=== PATIENT | male | born 1970 | race Hispanic/Latino ===

== ENCOUNTER 2020-04-28 10:26 | Emergency (ER) | payer OTHER, SELFPAY ==
[2020-04-28 10:27] VITALS: BP 133/80; PULSE 64; RESP 16; TEMP 36.9; O2SAT 97; BMI 21.0
--- NOTE | 2020-04-28 10:39 | ED.DCSUM_ITS ---
- ER Visit Summary Date of Service: 04/28/20 Chief Complaint: Left index finger laceration History of Present Illness: The patient is a 50 M who presents with a laceration to his left index finger that occurred today while at work. Patient states he was knife when he accidentally cut his left index finger. Patient is right-hand dominant. Patient denies any paresthesias. Patient states she has difficulty extending the DIP joint of his left index finger. Patient is unsure of his last tetanus. Patient states the bleeding stopped after several minutes of pressure. Dressing was applied. Physical Examination: Vital signs were stable. Patient is afebrile. Patient is in no acute distress. Skin is warm and dry. There is a 2 cm full-thickness linear laceration of the dorsal aspect of the left index finger over the DIP joint area. There is moderate gapping of the wound margins. There is moderate bleeding. There are no foreign bodies visualized. Sensation was intact light touch in all digits. Capillary refill was less than 2 seconds in all digits. Strength is 0/5 in extension of the DIP joint but is 5/5 in extension of the PIP and MP joints as well as flexion of the DIP, PIP, and MP joints. Emergency Department Course and Treatment: The wound was cleaned and irrigated with copious amounts of normal saline. The wound was anesthetized with 1% plain lidocaine via digital block. The wound was closed with 6 simple interrupted #4- 0 nylon sutures under sterile technique. Patient tolerated the procedure well. Bacitracin dressing was applied. The finger was placed in an extension splint. Video owner professional engineer was used to discuss instructions. Patient was instructed to maintain extension of the DIP joint when he changes the dressing. Patient was instructed to keep the wound clean and dry. Patient was instructed to [facility] with [facility] Patient was also given referral to Dr. Hong for follow- up care. Patient understood and was agreeable with the plan. All questions were answered. Disposition: Discharge home Impression: 1. Left index finger laceration 2. Extensor tendon laceration This note was generated with [employer] dictation software. It may contain incorrect words, spelling, and punctuation that were not noted in review of the chart prior to signing ED Disposition - Plan for ED Patient: Disposition: Home or Assisted Living Diagnosis: Laceration of left index finger, Extensor tendon laceration of finger with open wound Instructions: ED Laceration Hand, ED TENDON LACERATION [facility] - 7 Days for suture removal Gareth Hong MD [STAFF PHYSICIAN] - 5-7 Days Print Language: New Zealander
[2020-04-28 10:42] VITALS: RESP 16
--- NOTE | 2020-04-28 10:51 | NURSING ---
DR RU DEUTSCH
[2020-04-28] MEDS: BACITRACIN 15 GM Tube 1 APPLIC TOPICAL (11:30)
--- NOTE | 2020-04-28 11:40 | NURSING ---
spoke at length with patient using the head of stock pad and a procurement officer. This RN went over care and home/follow up instructions as well as the benefits of receiving a tetanus immunization. Pt refused the immunization. Clinical Lab Clerk also used to explain that patient need to go directly to the [facility] for testing. Dr. Mcdaniel spoke thru head of stock regarding need for keeping finger straight and using splint at all times and follow up given. D/c instructions provided in Faroese.
== END 2020-04-28 11:47 | disposition home or self-care (01) ==
PROVIDERS: Emergency Provider Emergency Medicine
DX: S61.211A Laceration without foreign body of left index finger without damage to nail, initial encounter (principal); S66.321A Laceration of extensor muscle, fascia and tendon of left index finger at wrist and hand level, initial encounter; W26.0XXA Contact with knife, initial encounter; Y93.9 Activity, unspecified; Y92.9 Unspecified place or not applicable; Y99.0 Civilian activity done for income or pay
CPT/HCPCS: 12001; 99284

== ENCOUNTER 2020-05-04 07:07 | Day surgery (SDC) | payer OTHER, SELFPAY ==
[2020-04-30 10:36] VITALS: BMI 21.0
--- NOTE | 2020-05-03 17:54 | PCM.HP.BLA ---
History and Physical Date of Admission: 05/04/20 HISTORY OF PRESENT ILLNESS 50 year old male presents for evaluation of his left index finger that was injured with a knife on 04/28/20 while he was at work. He was seen in the ED for evaluation and sutured his laceration on the dorsal aspect of his left index finger just proximal to the DIP joint crease. He has difficulty extending the distal phalanx of that finger. He comes in today for further evaluation. Patient speaks Arabic. A video cant gang sawyer was obtained, and his name was Michael Sheets (#[id number]). He was present for the entire visit. ALLERGIES No Known Allergies MEDICATIONS No Known/Unobtainable [No Known Home Medications] PAST MEDICAL HISTORY Work related injury Injury due to knife Laceration of left index finger with tendon involvement Laceration of extensor muscle, fascia and tendon of left index finger at wrist and hand level, initial encounter PAST SURGICAL HISTORY None. FAMILY HISTORY Other - No pertinent family history SOCIAL HISTORY Smoking Status: Never smoker alcohol intake: never substance use type: does not use REVIEW OF SYSTEMS General - Denies fever, fatigue, and weight loss. Eyes - Denies cataracts and glaucoma. ENT - Denies nasal congestion and sore throat. Endocrine - Denies excessive thirst and urination. Skin - Denies suspicious lesions and skin cancer. Musculoskeletal - Denies joint pain, joint stiffness, weakness of muscles and joints, back pain, and arthritis. Has pain and decreased range of motion at the DIP joint left index finger from recent knife laceration. Neuro - Denies headaches. Cardiovascular - Denies chest pain, fatigue, and shortness of breath with exertion. Psych - Denies anxiety and depression. Respiratory - Denies chronic cough and shortness of breath. Gastrointestinal - Denies nausea, vomiting, diarrhea, and constipation. Hematologic - Denies abnormal bruising and bleeding. Genitourinary - Denies hematuria and urinary frequency. PHYSICAL EXAMINATION General - Alert and oriented. HEENT - PERRL. EOMI. Throat is clear. Neck - Supple and non-tender. No cervical adenopathy. Lungs- Clear to auscultation. Heart - Regular rate and rhythm. Abdomen - Soft and non distended. Extremities - FROM right upper extremity. No axillary adenopathy. Radial pulses are palpable. Patient is right hand dominant. On the left index finger is a 2 cm laceration that has been suture repaired on dorsal aspect, just proximal to DIP joint on the edge of Zone 1 and Zone 2. He is able to distinguish sharp sensation without difficulty. He has decreased extensor strength in his left index finger and is unable to fully extend his distal phalanx. Neuro - CN II-XII grossly intact. Psych - Normal mood and affect. ASSESSMENT 1 2 cm horizontal laceration dorsum left index finger just proximal to DIP joint with extensor tendon injury (edge of zone 1 and zone 2). 2. Injury at work with a knife. PLAN Patient has a knife laceration to the dorsum left index finger just proximal to the DIP joint crease (edge of zone 1 and zone 2) with an extensor tendon injury. Recommended to the patient through a video cant gang sawyer that we proceed with surgery with exploration of the laceration and repair of the extensor tendon laceration. Will extend the incision in a proximal and distal direction to get necessary exposure for the tendon repair. Postoperatively he will have a splint. He will go to OT after discharge after healing for range of motion exercises, strengthening, and edema management. He may return to work after surgery when he is not using narcotics for pain and for one handed work ONLY. Estimated time back to work with no restrictions is 07/04/20 (tentative). Will schedule the surgery early next week under general anesthesia on an outpatient basis. Patient was informed of the risks and complications of the procedure including alternatives to surgery. These were discussed with the patient personally. Patient voices understanding and wishes to proceed. Some of the risks and complications were included in a form from the [employer]. Some of the risks and complications that were discussed included but were not inclusive of failure to diagnose including symptom relief, pain, infection, numbness, stiffness, loss of digit, RSD (CRPS), need for further surgery, contracture, and wound healing problems. We discussed the current risks associated with COVID-19. While it is understood that there is a community spread of COVID-19, the risk of haroldo COVID-[address] [facility] ([facility]) is very low; however, the risk cannot be completely mitigated because of the community spread of the disease. We discussed in detail the risk of exposure to and/or potential harm posed by the COVID-19 virus with having a surgery/procedure at this time versus the risk of delaying the surgery/procedure. It is not possible to know either the risk of delaying the surgery or procedure or chance of getting an infection with perfect accuracy, but a joint decision was made to proceed at this time with the scheduled surgery/procedure as indicated on the consent form. Patient was notified that we will need to comply with any screening or testing [facility] wishes to perform or that surgery may be delayed for any positive results. Discussed with the patient that I was tested for COVID-19 on 03/04/20 which was negative and on 03/18/20 which was negative and on 04/01/20 which was negative and on 04/15/20 which was negative. My testing regimen at this time is to be COVID-19 tested every 2 weeks or so. I was recently tested on 04/29/20, and that test was negative. Procedure Criteria Procedure Type: Elective COVID Risk Discussion: The surgeon/proceduralist and patient have discussed in detail the risk of exposure to and/or potential harm posed by the COVID-19 virus with having a surgery/procedure at this time versus the risk of delaying the surgery/procedure. It is not possible to know either the risk of delaying the surgery or procedure or chance of getting an infection with perfect accuracy, but a joint decision was made between the patient and the surgeon/proceduralist to proceed at this time with the scheduled surgery/procedure as indicated on the consent form.
[2020-05-04] VITALS (7 sets, daily range): BP systolic 107–137; BP diastolic 61–82; PULSE 61–72; RESP 16; TEMP 36.5–37.1; O2SAT 98–100; BMI 23.3
[2020-05-04] MEDS: Lactated Ringers 1,000 ML 100 ML IV ×2 (07:58→10:17)
[2020-05-04] MEDS: Cefazolin 2 GM in 0.9% Normal Saline 100 ML IV (08:55)
[2020-05-04] MEDS: Mupirocin Ointment 22gm Tube 1 APPLIC (09:45)
--- NOTE | 2020-05-04 10:01 | PCM.OPRPT ---
Report of Operation Date of Procedure: 05/04/20 Pre-Operative Diagnosis: 1 2 cm horizontal laceration dorsum left index finger just proximal to DIP joint with extensor tendon injury (edge of zone 1 and zone 2). 2. Injury at work with a knife. Post-Operative Diagnosis: Same. Surgery/Procedure Performed:: Repair extensor tendon laceration dorsum left index finger just proximal to DIP joint (edge of zone 1 and zone 2). Description of Surgical Findings:: 50 year old male presents for evaluation of his left index finger that was injured with a knife on 04/28/20 while he was at work. He was seen in the ED for evaluation and sutured his laceration on the dorsal aspect of his left index finger just proximal to the DIP joint crease. He has difficulty extending the distal phalanx of that finger. He comes in today for further evaluation. Patient speaks Macedonian. A video timber trimmer was obtained, and his name was Michael Sheets (#[id number]). He was present for the entire office visit. Patient was informed of the risks and complications of the procedure including alternatives to surgery. These were discussed with the patient personally. Patient voices understanding and wishes to proceed. Some of the risks and complications were included in a form from the [employer]. Some of the risks and complications that were discussed included but were not inclusive of failure to diagnose including symptom relief, pain, infection, numbness, stiffness, loss of digit, RSD (CRPS), need for further surgery, contracture, and wound healing problems. Total tourniquet time - 35 minutes. advisory application developer: None Type of Anesthesia:: General Specimen's removed: None. Drains: None. Estimated Blood Loss (mL): 2 ml. Description of Procedure: Patient was taken to OR in supine position and was placed under general anesthesia. The left hand was prepped and draped in the usual fashion. A tourniquet was placed. SCD's were placed for DVT prophylaxis. Perioperative antibiotics were given intravenously. For the procedure, I wore an N95 mask and wore proper eyewear protection. Using an Esmarch bandage, I elevated the tourniquet to 250 mmHg. Using xylocaine with epinephrine, a digital metacarpal block was administered to help with postop pain relief. I extended the incision on the dorsum left index finger in a proximal and distal direction in a zig zag fashion. Dissection was carried down to the underlying tendon, and the tendon laceration was visualized. The extensor tendon injury was just proximal to the DIP joint. I proceeded with repair of the extensor tendon laceration with 4-0 Nylon figure of eight interrupted sutures. The wound was irrigated with saline. Wound closure was done with 5-0 Nylon vertical mattress interrupted sutures and simple interrupted sutures. At the time of the wound closure, the tourniquet was released after 35 minutes. Hemostasis was obtained with gentle compression. No vascular compromise noted on the skin flaps. Antibiotic ointment was applied to the suture line followed by Xeroform gauze and 2x2 gauze and wrapped with a 2 inch Salima wrap. This was followed by a volar plaster splint with the wrist in dorsiflexion and the MP joints flexed and the IP joints extended and followed with a compression tiffanie wrap. Patient tolerated the procedure well and was sent to PACU in satisfactory condition. Patient will be sent home on antibiotics and pain medication. He will keep his left hand elevated during the initial postoperative period. Patient will followup in a week for a wound check. The sutures will be removed in two weeks. Will set up OT as an outpatient for a silastic splint and after healing, range of motion exercises, strengthening, and edema management. Grafts/Implants Used: None. - Complications None. - Admit VTE Documentation VTE Present on Admission: No VTE Mechan Device Prophylaxis: SCD's VTE Pharm Prophylaxis ordered?: No Surgery Charges CPT - 12739 ICD-10 - S66.321A, S61.211A, W26.0xxA, Y99.0
--- NOTE | 2020-05-04 10:12 | PCM.DC ---
You will use the following diet at home:: No restrictions Discharge Activity: May not drive while taking narcotic pain medications., May Shower - place plastic bag over left hand when showering., - - elevate left hand. no lifting with left hand. Return to work on:: 05/17/20 - tentative. one handed work only. May shower in (days): 1 - wear plastic bag over left hand when showering. May resume sexual activity in: No Restrictions Weight Bearing Status: Weight bearing as tolerated Lifting Restrictions: no lifting left hand. Keep extremity elevated above heart level: Left Arm Call your doctor if your incision/area has: Continuous Slow Oozing, Sudden Increased Bleeding, Increased Pain/ Swelling, Increased Redness, Foul Smelling Discharge, Swelling at the incision site Call your doctor if you observe: Fever of 101 or Higher, Coldness, Increased Pain, Shortness of breath, Chest pain, Calf discomfort, Uncontrolled pain Change Dressing in (Days):: 7 - will change operative dressing in office. Cleanse incision/area with: - - werar plastic bag over left hand when showering. Allergies/Adverse Reactions: Allergies No Known Allergies Allergy (Verified 05/04/20 07:28) Medications to take at Discharge Cefadroxil [Duricef] 500 mg PO BID #10 cap 05/04/20 Oxycodone HCl/Acetaminophen [Percocet 5/325] 1 tablet PO Q4H PRN PRN 7 Days #40 tablet 05/04/20 The following prescriptions were given: Cefadroxil [Duricef] 500 mg PO BID #10 cap Transmission Status: Pending to [facility] Oxycodone HCl/Acetaminophen [Percocet 5/325] 1 tablet PO Q4H PRN PRN 7 Days #40 tablet PRN Reason: Pain Score 6-10/10 Transmission Status: Sent to [facility] Primary Care Physician: Care Physician,No Primary [Primary Care Provider] - Test Results: Test results from this visit will be discussed in further detail at your follow-up appointment, if applicable. Please Follow Up With: Gareth Hong MD When: one week. call [phone] for appt. Please Follow Up With: occupational therapy - after healing proceed with range of motion exercises, strengthening, and edema management. When: one week for a silastic splint Proposed Discharge Date: 05/04/20
== END 2020-05-04 13:06 | disposition home or self-care (01) ==
LOC: SDC 07:14 → AC 07:14
PROVIDERS: Referring Provider Surgery; Visit Provider Surgery
PROC: (CPT 26418; principal; 2020-05-04 08:40)
DX: S66.321A Laceration of extensor muscle, fascia and tendon of left index finger at wrist and hand level, initial encounter (principal); S61.211A Laceration without foreign body of left index finger without damage to nail, initial encounter; W26.0XXA Contact with knife, initial encounter; Y93.89 Activity, other specified; Y92.89 Other specified places as the place of occurrence of the external cause; Y99.0 Civilian activity done for income or pay
CPT/HCPCS: 01810; 26418; 87635; C9803; J7120; J2405; U0003

== ENCOUNTER 2020-06-29 14:00 | Outpatient (RCR) | payer OTHER, SELFPAY ==
[2020-05-18 08:49] VITALS: BMI 23.3
--- NOTE | 2020-05-28 11:39 | HP.OTEVAL ---
Patient's Visit Information CLAUDIA BOLES is a 50 year old M, referred to Occupational Therapy by Dr. Gareth Hong MD, with a diagnosis of left IF extensor tendon laceration with repair. Date of Evaluation: 05/26/20 Occupational Therapist: Marsha Naylor, OTR/L, CHT - Subjective This 50 year old male was seen for OT eval with dx of left zone 1-2 extensor tendon laceration with repair- injury was on 04/28/20 and sx was on 05/04/20. - Pain left IF 2 - ROM ROM Comments: pt demo a ext lag at 15* of left IF all other digits are WNL - Strength Strength Comments: will test at later date - Sensation Sensation Comments: states around incision - Quick DASH-Disab of Arm,Shoulder& Hand Quick DASH Score: 35.0000 - Goals Goal:100% adherence to protocol: Yes Comment: extensor tendon zone 1 &2 repair protocol Goal:Daily scar massage when approriate: Yes Goal:ROM equal to unaffected hand: Yes Goal:Photo Mask Processor/Pinch strength at least 75% of unaffected hand: Yes Goal:No pain with affected hand use: Yes Goal:Full use of affected hand in daily activities including: Yes Goal:Decrease scar hypersensitivity: Yes - Rehabilitation General Assessment: Repair extensor tendon laceration dorsum left index finger just proximal to DIP joint (edge of zone 1 and zone 2). pt demo with extensor lag and would benefit from hyper ext orthosis for zone 1-2. Pt demo need for skilled OT services 1x week for 8 weeks to ensure tendon is healed and pts strength has returned to functional levels. pt has person with him during this session to assist with communication between pt and therapist. Therapist yadira custom orthosis for IF tip- ed pt on use and care, ed. pt on tendon protocol and progression of therapy services. Both communicated understanding of services. Rehabilitation Potential: Good - Anticipated Interventions A/AAROM/PROM, Strengthening, Scar Care, Desensitization, Modalities, Orthoses - Visit Plan Frequency: 1-2x /Week Duration: 6 Weeks TEXT: Thank you for the opportunity to evaluate your patient. For Medicare and Medicare HMO plans, please review the plan of care and approve it. It will need to be FAXED BACK to us at [phone] for Medicare purposes. Please let me know if there are questions or concerns regarding this plan of care. Physician Signature: Date:
--- NOTE | 2020-08-09 11:06 | HP.OT.NRP ---
CLAUDIA BOLES was seen in my office for initial evaluation on 05/26/20. The following Plan of Care was established for this patient: Initial Frequency: 1-2x /Week Initial Duration: 6 Weeks Plan: will see dr in 2 weeks Anticipated Interventions: A/AAROM/PROM, Strengthening, Scar Care, Desensitization, Modalities, Orthoses This patient was last seen in our office 06/29/20. Pertinent comments regarding their Occupational therapy will appear below: pt was seen for 4 OT sessions- last session pts ROM was good and pt to see in two weeks- pt has not retured at this time and due to time lapse in services pt d/c from OT. At this point I will be discontinuing this patient from occupational therapy. I would be happy to see this patient again in the future if found appropriate by the physician. Thank you! Marsha Naylor, OTR/L, CHT
== END 2020-06-29 19:00 | disposition home or self-care (01) ==
LOC: OT 14:00
PROVIDERS: Referring Provider Surgery; Visit Provider Surgery
DX: S66.321D Laceration of extensor muscle, fascia and tendon of left index finger at wrist and hand level, subsequent encounter (principal); S61.211D Laceration without foreign body of left index finger without damage to nail, subsequent encounter; W26.0XXD Contact with knife, subsequent encounter; Y99.0 Civilian activity done for income or pay
CPT/HCPCS: 97110; 97140; 97167; 97530